=== PATIENT | female | born 2000 | race African-American/Black ===

== ENCOUNTER → 2022-01-03 | Outpatient (REF) | payer OTHER ==
[2022-01-03 16:05] LABS: GC DNA AMPLIFICATION NEGATIVE (NEGATIVE)
== END ==
LOC: M LAB REF 12:36
PROVIDERS: ATTEND Physician Assistant Medical
DX: N39.0 Urinary tract infection, site not specified (principal)

== ENCOUNTER 2022-10-20 04:26 | Emergency (ER) | payer OTHER ==
[~2022-10-20] VITALS: Ht 160 cm; Wt 67.1 kg
[2022-10-20] MEDS ORDERED: CEPH500C PO (07:14)
[2022-10-20 07:32] VITALS: BP 131/70
== END 2022-10-20 07:34 | disposition home or self-care (01) ==
LOC: M ED 04:26
DX: J02.9 Acute pharyngitis, unspecified (principal); J03.90 Acute tonsillitis, unspecified

== ENCOUNTER 2022-11-22 11:49 | Emergency (ER) | payer OTHER ==
[~2022-11-22] VITALS: Ht 160 cm; Wt 70.6 kg
[~2022-11-22 11:49] MED LIST: CEPH500C PO
[2022-11-22] MEDS ORDERED: LIDOCAINE W/EPINEPHRINE 1% 20ML VIAL SC ONE (14:10)
[2022-11-22] MEDS ORDERED: NEOSPORIN OINT 0.9 GM PKT TOP ONE (15:10)
[2022-11-22 15:21] VITALS: BP 123/57
== END 2022-11-22 15:37 | disposition home or self-care (01) ==
LOC: M ED 11:49
DX: S61.412A Laceration without foreign body of left hand, initial encounter (principal); W24.0XXA Contact with lifting devices, not elsewhere classified, initial encounter; Y92.098 Other place in other non-institutional residence as the place of occurrence of the external cause